=== PATIENT | female | born 1985 | race Caucasian/White ===

== ENCOUNTER 2018-04-21 20:15 | Emergency (ER) | payer SELFPAY ==
[~2018-04-21] VITALS: Ht 167.6 cm; Wt 99.8 kg
--- NOTE | 2018-04-21 20:55 | NUR ---
Patient exited ER immediately after being seen by ERMD, unable to perform full assessment due to this fact.
[2018-04-21] MEDS ORDERED: HYDROMORPHONE 1 MG/1 ML DISP.SYRIN IM ONE (21:00)
[2018-04-21] MEDS ORDERED: ONDANSETRON 4 MG/2 ML VIAL IM ONE (21:00)
--- NOTE | 2018-04-21 21:00 | NUR ---
Patient eloped from facility. ER physician notified.
== END 2018-04-21 21:03 | disposition left against medical advice (07) ==
LOC: ER 20:16
DX: G43.909 Migraine, unspecified, not intractable, without status migrainosus (principal); Z90.49 Acquired absence of other specified parts of digestive tract
CPT/HCPCS: A4663